=== PATIENT | male | born 1955 | race Caucasian/White ===

== ENCOUNTER 2020-09-21 14:47 | Outpatient (CLI) | payer MEDICARE ==
[2020-09-21 20:11] LABS: BASOPHILS # (AUTO) 0.1 10^3/uL (0.0-0.1); BASOPHILS % (AUTO) 0.9 %; EOSINOPHILS # (AUTO) 0.3 10^3/uL (0.0-0.7); EOSINOPHILS % (AUTO) 3.5 %; HGB - HEMOGLOBIN 16.6 g/dL (14.0-18.0); LYMPHOCYTES # (AUTO) 2.7 10^3/uL (1.5-3.5); LYMPHOCYTES % (AUTO) 36.1 %; MEAN CORPUSCULAR HEMOGLOBIN 29.9 pg (27.0-31.0); MEAN CORPUSCULAR HGB CONC 32.3 g/dL (32.0-36.0); MEAN CORPUSCULAR VOLUME 92.6 fL (80.0-94.0); MEAN PLATELET VOLUME 10.5 fL (7.4-11.4); MONOCYTES # (AUTO) 0.9 10^3/uL (0.0-1.0); MONOCYTES % (AUTO) 11.6 %; NEUTROPHILS # (AUTO) 3.5 10^3/uL (1.5-6.6); NEUTROPHILS % (AUTO) 47.2 %; PLT - PLATELET COUNT 254 10^3/uL (130-450); RED BLOOD COUNT 5.55 10^6/uL (4.70-6.10); RED CELL DISTRIBUTION WIDTH 13.2 % (12.0-15.0); WHITE BLOOD COUNT 7.4 x10^3/uL (4.8-10.8)
[2020-09-21 20:13] LABS: ALBUMIN 4.1 g/dL (3.2-5.5); ALBUMIN/GLOBULIN RATIO 1.3 (1.0-2.2); BILIRUBIN,TOTAL 0.4 mg/dL (0.2-1.0); CALCIUM 9.4 mg/dL (8.5-10.3); CREATININE 0.8 mg/dL (0.6-1.2); TOTAL PROTEIN 7.3 g/dL (6.7-8.2)
[2020-09-21 21:01] LABS: BILIRUBIN,URINE NEGATIVE (NEGATIVE); GLUCOSE, URINE (UA) NEGATIVE (NEGATIVE); KETONES,URINE (UA) NEGATIVE (NEGATIVE); LEUKOCYTE ESTERASE, URINE NEGATIVE (NEGATIVE); NITRITE,URINE NEGATIVE (NEGATIVE); OCCULT BLOOD,URINE LARGE (NEGATIVE); PROTEIN,URINE NEGATIVE (NEGATIVE); UROBILINOGEN,URINE 0.2 (NORMAL) E.U./dL (NORMAL)
[2020-09-21 21:18] LABS: BACTERIA,URINE None Seen /HPF (None Seen); CLARITY,URINE CLEAR (CLEAR); SQUAMOUS EPITHELIAL CELL,UR RARE Squamous (<= Few)
== END 2020-09-21 23:59 | disposition home or self-care (01) ==
LOC: LAB.S 14:47
PROVIDERS: ATTEND Emergency Medicine
DX: N40.0 Benign prostatic hyperplasia without lower urinary tract symptoms (principal); R31.9 Hematuria, unspecified; R10.32 Left lower quadrant pain
CPT/HCPCS: 36415; 80053; 81001; 84153; 85025; 87086

== ENCOUNTER 2020-09-21 15:57 | Outpatient (CLI) | payer MEDICARE ==
--- NOTE | 2020-09-21 16:36 | CT Report ---
PROCEDURE: Abdomen/Pelvis WO INDICATIONS: HEMATURIA,ABD PAIN,LLQ TECHNIQUE: Noncontrast 5 mm thick sections acquired from the diaphragms to the symphysis. 5 mm coronal and sagi ttal reformats were then performed. For radiation dose reduction, the following was used: automated exposure control, adjustment of mA and/or kV according to patient size. COMPARISON: None. FINDINGS: Image quality: Excellent. ABDOMEN: Lung bases: Lung bases are clear. Heart size is normal. Solid organs: Liver and spleen are normal in size. Gallbladder Pancreas is normal in contours. No adrenal nodules. Kidneys are normal in size, without hydronephrosis or nephrolithiasis. Peritoneum and bowel: Unenhanced bowel loops demonstrate normal wall thickness and caliber. No free fluid or air. Normal appendix. There is a high density focus within the anterior abdominal peritone al cavity which demonstrates multiple small uniform metallic densities within it. Nodes and vessels: No retroperitoneal or mesenteric adenopathy by size criteria. Aorta and inferior vena cava are normal in caliber. Miscellaneous: No ventral hernias. PELVIS: Genitourinary: 17 mm left posterolateral urinary bladder diverticulum. Bladder wall thickness is oth erwise normal. Miscellaneous: No inguinal hernias or adenopathy. Bones: No suspicious bony lesions. No vertebral body compression fractures. IMPRESSION: 1. No evidence of urinary tract calcification, nor obstruction. 2. Urinary bladder diverticulum. 3. Normal appendix. 4. 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 Correlation with surgical history and plain films is recommended. Reviewed by: Steven Willard MD on 09/21/2020 4:35 PM PST Approved by: Steven Willard MD on 09/21/2020 4:35 PM PST Station ID: [id number]
== END 2020-09-21 15:58 | disposition home or self-care (01) ==
LOC: DI 15:57
PROVIDERS: ATTEND Emergency Medicine
DX: R10.32 Left lower quadrant pain (principal); R31.9 Hematuria, unspecified; N32.3 Diverticulum of bladder
CPT/HCPCS: 74176

== ENCOUNTER 2020-12-23 11:44 | Outpatient (CLI) | payer MEDICARE ==
[2020-12-23 15:18] LABS: CALCIUM 9.1 mg/dL (8.5-10.3); CREATININE 0.8 mg/dL (0.6-1.2); POTASSIUM 3.9 mmol/L (3.5-5.0)
== END 2020-12-23 11:45 | disposition home or self-care (01) ==
LOC: LAB.S 11:44
PROVIDERS: ATTEND Specialist
DX: R94.4 Abnormal results of kidney function studies (principal)
CPT/HCPCS: 36415; 80048

== ENCOUNTER 2021-04-21 11:22 | Outpatient (CLI) | payer MEDICARE ==
[2021-04-21 14:28] LABS: BASOPHILS # (AUTO) 0.1 10^3/uL (0.0-0.1); BASOPHILS % (AUTO) 0.7 %; EOSINOPHILS # (AUTO) 0.2 10^3/uL (0.0-0.7); EOSINOPHILS % (AUTO) 2.6 %; HCT - HEMATOCRIT 49.1 % (42.0-52.0); HGB - HEMOGLOBIN 15.9 g/dL (14.0-18.0); LYMPHOCYTES # (AUTO) 2.3 10^3/uL (1.5-3.5); LYMPHOCYTES % (AUTO) 33.9 %; MEAN CORPUSCULAR HEMOGLOBIN 30.2 pg (27.0-31.0); MEAN CORPUSCULAR HGB CONC 32.4 g/dL (32.0-36.0); MEAN CORPUSCULAR VOLUME 93.2 fL (80.0-94.0); MEAN PLATELET VOLUME 10.7 fL (7.4-11.4); MONOCYTES # (AUTO) 0.7 10^3/uL (0.0-1.0); MONOCYTES % (AUTO) 9.9 %; NEUTROPHILS # (AUTO) 3.6 10^3/uL (1.5-6.6); NEUTROPHILS % (AUTO) 52.3 %; PLT - PLATELET COUNT 243 10^3/uL (130-450); RED BLOOD COUNT 5.27 10^6/uL (4.70-6.10); RED CELL DISTRIBUTION WIDTH 14.4 % (12.0-15.0); WHITE BLOOD COUNT 6.9 x10^3/uL (4.8-10.8)
[2021-04-21 14:45] LABS: ALBUMIN 4.3 g/dL (3.2-5.5); ALBUMIN/GLOBULIN RATIO 1.7 (1.0-2.2); ALKALINE PHOSPHATASE 41 IU/L (42-121); ALT ALANINE AMINOTRANSFERASE 24 IU/L (10-60); AST ASPARTATE AMINOTRANSFERASE 21 IU/L (10-42); BILIRUBIN,TOTAL 0.8 mg/dL (0.2-1.0); BUN - BLOOD UREA NITROGEN 11 mg/dL (6-20); CALCIUM 9.2 mg/dL (8.5-10.3); CARBON DIOXIDE - CO2 27 mmol/L (21-32); CHLORIDE 100 mmol/L (101-111); CHOL/HDL RATIO 3.2 (<5.0); CHOLESTEROL 217 mg/dL; CREATININE 0.8 mg/dL (0.6-1.2); GFR - MDRD 98 (>89); GLUCOSE 122 mg/dL (70-100); HDL CHOLESTEROL 68 mg/dL; LDL CHOLESTEROL,CALCULATED 136 mg/dL; POTASSIUM 3.9 mmol/L (3.5-5.0); SODIUM 136 mmol/L (135-145); TOTAL PROTEIN 6.9 g/dL (6.7-8.2); TRIGLYCERIDES 65 mg/dL; VLDL CHOLESTEROL 13 mg/dL
== END 2021-04-21 11:23 | disposition home or self-care (01) ==
LOC: LAB.S 11:22
PROVIDERS: ATTEND Internal Medicine
DX: J44.9 Chronic obstructive pulmonary disease, unspecified (principal); Z79.899 Other long term (current) drug therapy; Z13.220 Encounter for screening for lipoid disorders
CPT/HCPCS: 36415; 80053; 80061; 83721; 85025

== ENCOUNTER 2021-05-14 07:00 | Outpatient (CLI) | payer MEDICARE ==
[2021-05-15 20:05] LABS: FECAL OCCULT BLOOD (FIT) NEGATIVE (NEGATIVE)
== END 2021-05-14 23:59 | disposition home or self-care (01) ==
LOC: LAB.R 07:00
PROVIDERS: ATTEND Internal Medicine
DX: Z12.11 Encounter for screening for malignant neoplasm of colon (principal)
CPT/HCPCS: 82274

== ENCOUNTER 2021-05-15 09:08 | Outpatient (CLI) | payer MEDICARE ==
--- NOTE | 2021-05-15 10:14 | CT Report ---
PROCEDURE: Low Dose Lung Cancer Screen INDICATIONS: COPD TECHNIQUE: Noncontrast low-dose images were acquired from the pulmonary apices to the posterior costophrenic ang les. Multiplanar MIP reformats were then acquired. For radiation dose reduction, the following was used: automated exposure control, adjustment of mA and/or kV according to patient size. COMPARISON: None. FINDINGS: Image quality: Excellent. Lungs and pleura: Mild emphysematous change. Mediastinum: Heart size is normal. No pericardial effusion. Severe coronary artery calcifications. No mediastinal adenopathy by size criteria. Thoracic aorta and central pulmonary arteries are normal in size. Esophagus is normal in caliber. No hiatal hernia. Bones and chest wall: No suspicious bony lesions. No vertebral body compression fractures. No axil buddy or supraclavicular adenopathy by size criteria. Thyroid is grossly unremarkable. Abdomen: Visualized upper abdomen solid organs and bowel loops appear normal in the absence of contr ast. IMPRESSION: 1. LungRads category 1: Negative. No nodules and/or definitely benign nodules. 2. Annual low-dose noncontrast CT of the chest is recommended for lung cancer screening. 3. Clinically significant or potentially clinically significant findings (nonlung cancer): Severe cor onary artery calcifications, mild emphysematous change. CLINICAL RECOMMENDATION STATEMENTS: In patients <35 years with an ITN detected on CT, MRI, or extrathyroidal ultrasound, the Committee re commends further evaluation with dedicated thyroid ultrasound if the nodule is ?1 cm and has no suspi cious imaging features, and if the patient has normal life expectancy. In patients ?35 years with an ITN detected on CT, MRI, or extrathyroidal ultrasound, the Committee re commends further evaluation with dedicated thyroid ultrasound if the nodule is ?1.5 cm and has no glenn picious imaging features, and if the patient has normal life expectancy. (ACR, 2014) Reviewed by: Baldo Vazquez MD on 05/15/2021 10:13 AM PDT Approved by: Baldo Vazquez MD on 05/15/2021 10:13 AM PDT Station ID: [id number]
== END 2021-05-15 09:09 | disposition home or self-care (01) ==
LOC: DI 09:08
PROVIDERS: ATTEND Internal Medicine
DX: Z12.2 Encounter for screening for malignant neoplasm of respiratory organs (principal); I25.84 Coronary atherosclerosis due to calcified coronary lesion; J43.9 Emphysema, unspecified; F17.210 Nicotine dependence, cigarettes, uncomplicated; M50.01 Cervical disc disorder with myelopathy, high cervical region; M47.12 Other spondylosis with myelopathy, cervical region; M47.13 Other spondylosis with myelopathy, cervicothoracic region; M48.02 Spinal stenosis, cervical region; Z98.1 Arthrodesis status

== ENCOUNTER 2021-05-15 09:08 | Outpatient (CLI) | payer OTHER, MEDICARE ==
--- NOTE | 2021-05-15 17:17 | MRI Report ---
PROCEDURE: Cervical Spine W/O INDICATIONS: CERVICAL SPONDYLOSIS WITH MYELOPATHY TECHNIQUE: Noncontrast sagittal T1 spin echo and T2 fast spin echo, sagittal STIR, foraminal oblique sagittal T2 fast spin echo, and axial gradient echo or T2 fast spin echo through the cervical spine. COMPARISON: None. FINDINGS: Image quality: Motion artifact is noted. Alignment and Curvature: There is minimal retrolisthesis seen at C3-C4 and the C4-C5. Bone Marrow: Marrow demonstrates normal overall signal. Spinal Cord: Visualized spinal cord has normal size and signal. No cerebellar tonsillar herniation. Paraspinous Soft Tissues: No paravertebral masses. Prevertebral soft tissues are normal in thicknes s. Postoperative changes are seen, with vertebral body fusion C5-C7. C2-C3: The disc height is well-preserved. There is loss of disc signal seen. Mild disc osteophyte co mplex is seen, with a mild central disc protrusion. There is mild right-sided and moderate left-sided facet hypertrophy seen. There is moderate to severe left-sided and mild to moderate right-sided neur oforaminal narrowing seen. Mild to moderate central canal narrowing is seen at this level. C3-C4: At least moderate loss of disc height and disc signal can be seen. At least moderate disc os teophyte complex is seen, with a central disc osteophyte protrusion. At least moderate facet hypertro phy is seen at this level. Moderate to severe bilateral neuroforaminal narrowing can be seen. Moderat e to severe central canal narrowing is seen, with associated ventral cord flattening. C4-C5: At least moderate loss of disc height and disc signal can be seen. Moderate disc osteophyte c omplex is seen, with a central/left disc osteophyte protrusion, as on series 701 image 17. At least m oderate facet hypertrophy is seen. Moderate to severe bilateral neuroforaminal narrowing can be seen. Moderate to severe central canal narrowing is seen, with associated ventral cord flattening. C5-C6: Vertebral body fusion can be seen at this level. Moderate disc osteophyte complex is seen, wh ich is eccentric to the left, with a mild central/left disc protrusion. There is at least moderate fa cet hypertrophy seen at this level. There is at least moderate bilateral neuroforaminal narrowing see n. Mild to moderate central canal narrowing is seen. Associated mass effect is seen upon the ventral spinal cord. C6-C7: There is vertebral body fusion seen at this level. At least moderate disc osteophyte complex is seen, with a central/left disc osteophyte protrusion, as on series 701 image 9. Moderate facet hy pertrophy is seen. There is moderate to severe bilateral neuroforaminal narrowing seen, left worse t fung right. Mild to moderate central canal narrowing is seen. Associated mass effect is seen upon the ventral spinal cord. C7-T1: The disc height is well-preserved. There is loss of disc signal seen. Moderate disc osteophyt e complex is seen, which is eccentric to the right. Moderate facet hypertrophy is seen. There is mo derate right-sided and mild left-sided neuroforaminal narrowing seen. No signal and central canal tadeo rowing is seen. IMPRESSION: Multiple levels of cervical spine degenerative change are seen, which are overall most prominent at C 3-C4 and C4-C5. Vertebral body fusion can be seen at C5-C7. At C5-C6 and the C6-C7, there are central/left disc protr usions seen. Reviewed by: Refugio Magana MD on 05/15/2021 4:16 PM YONY Approved by: Refugio Magana MD on 05/15/2021 4:16 PM YONY Station ID: [id number]
== END 2021-05-15 09:09 | disposition home or self-care (01) ==
LOC: DI 09:08
PROVIDERS: ATTEND Orthopaedic Surgery
DX: M50.01 Cervical disc disorder with myelopathy, high cervical region (principal); M47.12 Other spondylosis with myelopathy, cervical region; M47.13 Other spondylosis with myelopathy, cervicothoracic region; M48.02 Spinal stenosis, cervical region; Z98.1 Arthrodesis status

== ENCOUNTER 2023-05-07 13:39 | Outpatient (CLI) | payer MEDICARE ==
[2023-05-07 19:48] LABS: BASOPHILS # (AUTO) 0.1 10^3/uL (0.0-0.1); BASOPHILS % (AUTO) 1.1 %; EOSINOPHILS # (AUTO) 0.2 10^3/uL (0.0-0.7); HGB - HEMOGLOBIN 15.9 g/dL (14.0-18.0); LYMPHOCYTES # (AUTO) 2.4 10^3/uL (1.5-3.5); LYMPHOCYTES % (AUTO) 31.4 %; MEAN CORPUSCULAR HEMOGLOBIN 30.9 pg (27.0-31.0); MEAN CORPUSCULAR HGB CONC 32.4 g/dL (32.0-36.0); MEAN CORPUSCULAR VOLUME 95.3 fL (80.0-94.0); MEAN PLATELET VOLUME 10.8 fL (7.4-11.4); MONOCYTES # (AUTO) 0.8 10^3/uL (0.0-1.0); MONOCYTES % (AUTO) 10.3 %; NEUTROPHILS # (AUTO) 4.1 10^3/uL (1.5-6.6); NEUTROPHILS % (AUTO) 54.4 %; PLT - PLATELET COUNT 299 10^3/uL (130-450); RED BLOOD COUNT 5.14 10^6/uL (4.70-6.10); RED CELL DISTRIBUTION WIDTH 13.2 % (12.0-15.0); WHITE BLOOD COUNT 7.5 x10^3/uL (4.8-10.8)
[2023-05-07 20:04] LABS: ALBUMIN 4.3 g/dL (3.2-5.5); ALBUMIN/GLOBULIN RATIO 1.8 (1.0-2.2); ALKALINE PHOSPHATASE 47 IU/L (42-121); ALT ALANINE AMINOTRANSFERASE 21 IU/L (10-60); AST ASPARTATE AMINOTRANSFERASE 20 IU/L (10-42); BILIRUBIN,TOTAL 0.4 mg/dL (0.2-1.0); BUN - BLOOD UREA NITROGEN 14 mg/dL (6-20); CALCIUM 9.6 mg/dL (8.5-10.3); CARBON DIOXIDE - CO2 30 mmol/L (21-32); CHLORIDE 100 mmol/L (101-111); CHOLESTEROL 180 mg/dL; CREATININE 0.8 mg/dL (0.6-1.3); GFR - MDRD 97 (>89); GLUCOSE 114 mg/dL (74-104); HDL CHOLESTEROL 61 mg/dL; LDL CHOLESTEROL,CALCULATED 103 mg/dL; LDL/HDL RATIO 1.7 (<3.6); SODIUM 138 mmol/L (135-145); TOTAL PROTEIN 6.7 g/dL (6.4-8.9); TRIGLYCERIDES 78 mg/dL (48-352); VLDL CHOLESTEROL 16 mg/dL
== END 2023-05-07 13:40 | disposition home or self-care (01) ==
LOC: LAB.S 13:39
PROVIDERS: ATTEND Internal Medicine
DX: E78.5 Hyperlipidemia, unspecified (principal); Z79.899 Other long term (current) drug therapy; N40.0 Benign prostatic hyperplasia without lower urinary tract symptoms; F17.210 Nicotine dependence, cigarettes, uncomplicated
CPT/HCPCS: 36415; 80053; 80061; 83721; 84153; 85025

== ENCOUNTER 2023-05-14 10:02 | Outpatient (CLI) | payer MEDICARE ==
--- NOTE | 2023-05-14 12:05 | CT Report ---
PROCEDURE: Low Dose Lung Cancer Screen INDICATIONS: CURRENT SMOKER TECHNIQUE: A CT scan of the chest was performed. Intravenous contrast media was not administered. Images were re corded and evaluated at appropriate window settings. Reformats: axial MIP of the chest, coronal and s agittal. For radiation dose reduction, the following was used: automated exposure control, adjustment of mA and/or kV according to patient size. COMPARISON: CT chest, 05/15/2021. FINDINGS: Image quality: Excellent. Lungs and pleura: Moderate emphysema. No focal infiltrate or consolidation. No pleural effusions. No pneumothorax. No suspicious pulmonary nodules which require follow up. Mediastinum: Heart size is normal. No pericardial effusion. No large vessel abnormality. No mediastin al adenopathy by size criteria. There is severe coronary calcification. There is a small hiatal lianet ia. Chest wall and lower neck: Thyroid is unremarkable. No axillary or supraclavicular adenopathy by size . Bones: No aggressive osseous abnormality. Upper Abdomen: Unremarkable. IMPRESSION: Lung RAD: 1 - Negative. Recommendation: Continue annual screening in 12 Months with LDCT Reviewed by: Teagan Katz MD on 05/14/2023 12:04 PM PDT Approved by: Teagan Katz MD on 05/14/2023 12:04 PM PDT Station ID: [id number]
== END 2023-05-14 10:03 | disposition home or self-care (01) ==
LOC: DI 10:02
PROVIDERS: ATTEND Internal Medicine
DX: Z12.2 Encounter for screening for malignant neoplasm of respiratory organs (principal); F17.210 Nicotine dependence, cigarettes, uncomplicated; J43.9 Emphysema, unspecified; I25.10 Atherosclerotic heart disease of native coronary artery without angina pectoris; K44.9 Diaphragmatic hernia without obstruction or gangrene

== ENCOUNTER 2023-07-01 12:57 | Outpatient (CLI) | payer MEDICARE ==
--- NOTE | 2023-07-01 16:45 | XRAY Report ---
PROCEDURE: Hip w/Pelvis 2-3V LT INDICATIONS: HIP JOINT PAIN TECHNIQUE: AP pelvis with lateral view(s) of the left hip(s). COMPARISON: None. FINDINGS: Bones: No fractures or dislocations. No suspicious bony lesions. Left hip orthoplasty. Soft tissues: No suspicious soft tissue calcifications or masses. IMPRESSION: No acute fracture. No osseous lesion. If symptoms and/or clinical suspicion for pathology continue, f urther assessment with repeat plain films, or advanced imaging (e.g., CT, MRI, or bone scan) is recom mended for further assessment. Reviewed by: Steven Willard MD on 07/01/2023 4:44 PM PDT Approved by: Steven Willard MD on 07/01/2023 4:44 PM PDT Station ID: [id number]
--- NOTE | 2023-07-01 16:46 | XRAY Report ---
PROCEDURE: Lumbar Spine Complete INDICATIONS: HIP JOINT PAIN TECHNIQUE: 3 views of the lumbar spine were acquired. COMPARISON: None. FINDINGS: Bones: 5 [id number] vertebrae are present. Multilevel disc space narrowing and endplate osteoph yte formation, as well as facet hypertrophy. There is normal bony alignment. No vertebral body compr ession fractures. No suspicious bony lesions. Soft tissues: Overlying bowel gas pattern is normal. No suspicious soft tissue calcifications. Mul tiple wires within the posterior paraspinous soft tissues at L4-L5. IMPRESSION: Multilevel degenerative disc and facet disease. No acute fracture. No osseous lesion. If symptoms and/or clinical suspicion for pathology continue, further assessment with repeat plain films , or advanced imaging (e.g., CT, MRI, or bone scan) is recommended for further assessment. Reviewed by: Steven Willard MD on 07/01/2023 4:44 PM PDT Approved by: Steven Willard MD on 07/01/2023 4:44 PM PDT Station ID: [id number]
== END 2023-07-01 12:58 | disposition home or self-care (01) ==
LOC: DI.S 12:57
PROVIDERS: ATTEND Internal Medicine
DX: M47.816 Spondylosis without myelopathy or radiculopathy, lumbar region (principal); M51.36 Other intervertebral disc degeneration, lumbar region; M25.552 Pain in left hip; N40.0 Benign prostatic hyperplasia without lower urinary tract symptoms
CPT/HCPCS: 36415; 84153